=== PATIENT | female | born 1930 | race Caucasian/White ===

== ENCOUNTER 2018-03-29 01:18 | Emergency (ER) | payer MEDICARE, OTHER ==
[~2018-03-29] VITALS: Ht 172.7 cm; Wt 54.4 kg
[~2018-03-29 01:18] MED LIST: AMLO2.5T2 PO; ASPI-484 PO; ASPI-667 PO; ATEN50TA PO; BETA1TAB10 PO; DONE5TAB7 PO; HALO1TAB PO; LEVO112T2 PO; LOSA50TA7 PO; MULT-615 PO; SALM1CAP2 PO; TRAZ-124 PO
--- NOTE | 2018-03-29 01:35 | NUR ---
WOUND CARE SKIN CLOSURE STRIPS REMOVED FROM LACERATION TO ASSESS DEPTH/NEED FOR SUTURES. REMOVED BY DR ADKINS DETERMINED DERMABOND AND STRIPS WOULD BE APPROPRIATE FOR LACERATION REPAIR. CLEANSED WITH SALINE, DRIED COMPLETELY, DERMABOND APPLIED, STRIPS X3 APPLIED WITH MINIMAL OPENING TO ALLOW FOR DRAINAGE. PATIENT DENIES PAIN OR DISCOMFORT. HAS HISTORY OF ALZHEIMER'S AND IS ONLY ORIENTED TO PERSON AT THIS TIME, UNABLE TO RECALL WHAT HAPPENED TO CAUSE FALL/LACERATION, NOT SURE WHERE SHE IS AT THIS TIME. NURSING CENTER CARGO SUPERVISOR AT BEDSIDE TO SIT WITH PATIENT.
--- NOTE | 2018-03-29 01:45 | ER.PDOC ---
General Chief Complaint: Requesting Medical Care Stated Complaint: HEAD INJURY Time seen by MD: 01:38 Source: RN/MD, [facility] records Exam Limitations: clinical condition History of Present Illness Initial Comments Pt fell at [place] and injured left frontal area, possible LOC Occurred: just prior to arrival Where: other ([place]) Severity: moderate Location: frontal Method of Injury: fell Associated symptoms: Lost consciousness Allergies: Coded Allergies: No Known Allergies (Unverified , 01/23/17) Home Meds Active Scripts Amlodipine Besylate (NORVASC) 2.5 Mg Tablet, 2.5 MG PO DAILY, #30 TABLET Prov:CATRACHITA PINEDA MD 02/08/18 Atenolol (TENORMIN) 50 Mg Tablet, 25 MG PO DAILY, #30 TABLET Prov:CATRACHITA PINEDA MD 02/08/18 Haloperidol (HALOPERIDOL) 1 Mg Tablet, 1 MG PO BID for 30 Days, TABLET Prov:PENNIE ANDERSON NP 02/07/18 Trazodone Hcl (TRAZODONE HCL) 50 Mg Tablet, 50 MG PO HS for 30 Days, TABLET Prov:PENNIE ANDERSON NP 02/07/18 Reported Medications Beta-Carotene(A) W-C & E/Min (VISION VITAMINS) 1 Each Tablet, 1 EACH PO DAILY24 , TABLET 01/26/18 Multivitamin With Minerals (HAIR, SKIN & NAILS) 1 Each Tablet, 1 EACH PO DAILY24 , TABLET 01/26/18 Aspirin (ASPIR 81) 81 Mg Tablet.dr, 2 TAB PO DAILY, #30 TAB 5 Refills 01/26/18 [place] Oil/[place]-3 Fatty Acids (SALMON OIL 1,000 MG SOFTGEL) 1 Each Capsule, 2 EACH PO DAILY24, CAPSULE 01/26/18 Donepezil Hcl (DONEPEZIL HCL) 5 Mg Tablet, 1 TAB PO DAILY, #30 TAB 5 Refills 01/26/18 Losartan Potassium (LOSARTAN POTASSIUM) 50 Mg Tablet, 1 TAB PO DAILY, #30 TAB 5 Refills 01/26/18 Levothyroxine Sodium (SYNTHROID) 112 Mcg Tablet, 1 TAB PO DAILY, #30 TAB 5 Refills 01/24/17 Social History Drug Use: none Review of Systems Constitutional: no symptoms reported Eyes: no symptoms reported Ears, Nose, Mouth, Throat: no symptoms reported Respiratory: no symptoms reported Cardiovascular: no symptoms reported Gastrointestinal: no symptoms reported Genitourinary: no symptoms reported Musculoskeletal: no symptoms reported Skin: see HPI Psychiatric/Neurological: see HPI Endocrine: no symptoms reported Hematologic/Lymphatic: no symptoms reported Physical Exam General Appearance: Alert, No Apparent Distress, WD/WN Head: Contusions, Lacerations (left frontal area) Eye: PERRL, EOMI, No nystagmus ENT: Nml external inspection, Pharynx nml Neck: non-tender, painless ROM, trachea midline Cardiovascular/Respiratory: Regular Rate, Rhythm, No M/R/G, Normal Peripheral Pulses, No JVD, Normal Breath Sounds, No Respiratory Distress Gastrointestinal: Normal Bowel Sounds, No Organomegaly, No Pulsatile Mass, Non Tender, Soft Extremities: Normal Range of Motion, Non-Tender, Normal Inspection, No Pedal Edema, No Calf Tenderness, Normal Capillary Refill NEURO/PSYCH: Confused, Disoriented to person (normal base line, dementia), Disoriented to place, Disoriented to time Cranial Nerves: Normal Hearing, Normal Speech, PERRL Coordination/Gait: Normal Finger to Nose, Normal Gait Motor/Sensory: No Motor Deficit, No Sensory Deficit, No Pronator Drift, Negative Babinski's Sign Skin: Normal Color, Warm/Dry Lymphatic: No Adenopathy Keesha Coma Score Best Eye Response: (4) Open Spontaneously Best Verbal Response: (4) Confused Conversation Best Motor Response: (6) Obeys Commands Additional Procedures Progress Laceration on left frontal area, repaired with dermabond and steri strips Departure Time of Disposition: 02:59 Disposition: 01 HOME, SELF-CARE Impression: Primary Impression: Head injury Additional Impression: Forehead laceration Condition: Stable Referrals: MOIRA RAO MD (PCP) PRIMARY CARE PROVIDER Duration or Time Spent with Pa: ANUM BAUGH MD Mar 29, 2018 01:45
[2018-03-29 01:47] VITALS: BP 199/99
--- NOTE | 2018-03-29 02:00 | NUR ---
HEAD CT PATIENT TAKEN TO CT VIA [facility]
--- NOTE | 2018-03-29 02:58 | DIREP ---
PROCEDURE:CT HEAD OR BRAIN W/O CONTRAST COMPARISON:[facility], CT, CT HEAD BRAIN W/O CONTRAST, 01/03/2018, 02:55 PM. [facility], CT, CT HEAD BRAIN W/O CONTRAST, 08/14/2017, 01:37 PM. INDICATIONS:Fall, LOC, head injury TECHNIQUE:CT images were created without intravenous contrast. FINDINGS: VENTRICLES:The ventricles are normal in size and configuration. CEREBRUM:Moderate foci of diminished attenuation in the supratentorial white matter consistent with moderate leukoaraiosis. CEREBELLUM:Negative. BRAINSTEM:Negative. BASAL CISTERNS:Negative. HEMORRHAGE:No MASS LESION:No ACUTE INFARCT:No SKULL:Normal. SINUSES:Normal. OTHER:None CONCLUSION:Moderate white matter disease. No acute superimposed findings, or significant interval change Dictated by: Charles Taylor MD on 03/29/2018 at 02:55 AM
[2018-03-29 03:00] VITALS: BP 208/97
[2018-03-29] MEDS ORDERED: CATAPRES ONE (03:08)
[2018-03-29] MEDS ORDERED: CATAPRES PO STA (03:09)
[2018-03-29 03:34] VITALS: BP 208/97
== END 2018-03-29 03:10 | disposition home or self-care (01) ==
LOC: ER 01:18
DX: S01.81XA Laceration without foreign body of other part of head, initial encounter (principal); R41.0 Disorientation, unspecified; Z79.82 Long term (current) use of aspirin; Z79.899 Other long term (current) drug therapy; W19.XXXA Unspecified fall, initial encounter; Y93.89 Activity, other specified; Y92.128 Other place in nursing home as the place of occurrence of the external cause; Y99.8 Other external cause status
CPT/HCPCS: 12013; 70450; 99284

== ENCOUNTER → 2018-04-25 | Outpatient (CLI) | payer MEDICARE, OTHER ==
[~2018-04-25] MED LIST changes: +LOSA50TA14 PO; -LOSA50TA7 PO
--- NOTE | 2018-04-25 15:16 | DIREP ---
PROCEDURE:CT PELVIS W/O COMPARISON:None. INDICATIONS:R52 PAIN TECHNIQUE:CT images were created without intravenous contrast. FINDINGS: AORTA/VASCULAR: Calcified atherosclerosis. No aneurysm. ABDOMINAL WALL: Normal. No mass or hernia. URINARY BLADDER: Inherently limited evaluation of the wall; unremarkable for level of distension. PELVIS: Hysterectomy, no adnexal mass. Moderate stool burden in the pelvis. No adenopathy. BONES: No fracture identified. Moderate degenerative changes of the right hip. Mild to moderate degenerative changes of the left hip. Degenerative changes at the pubic symphysis. Severe degenerative changes in the lower lumbar/lumbosacral spine. Left L5 pars defect. OTHER: No free air or fluid. CONCLUSION: 1. Degenerative changes of the hips, pubic symphysis and lower lumbar/lumbosacral spine. Dictated by: Charisse Hoang MD on 04/25/2018 at 03:00 PM
== END | disposition home or self-care (01) ==
LOC: CT 09:23
PROVIDERS: ATTEND Family Medicine
DX: M16.12 Unilateral primary osteoarthritis, left hip (principal); M47.897 Other spondylosis, lumbosacral region; Z90.710 Acquired absence of both cervix and uterus
CPT/HCPCS: 72192